=== PATIENT | male | born 1995 | race Caucasian/White ===

== ENCOUNTER 2017-05-18 17:44 | Emergency (ER) | payer BC, OTHER ==
[2017-05-18 17:52] VITALS: TEMP 99.1; O2SAT 96
--- NOTE | 2017-05-18 18:23 | EDPHY ---
H & P Time Seen by Provider: 05/18/17 17:46 HPI/ROS: HPI Right leg injury. 21-year-old male by private vehicle with his friends. This patient was playing Frisbee, he had another player fall awkwardly onto lateral posterior aspect of his right leg. He complains of pain and deformity to this area. No other injury or complaint. ROS: Constitutional: No fever, no chills. No weakness. Musculoskeletal: No back pain. No neck pain. As above. No other extremity pain. Skin: No rashes. No lacerations or abrasions. Neurological: No headache. No focal weakness or altered sensation. Past medical history: Denies. No prescription medications. Social history: Nonsmoker. Drinks alcohol socially. Here with his friends. Physical Exam: General Appearance: Alert, no distress. This patient is responding to questions appropriately and in full sentences. This patient appears well- hydrated and well-nourished. Eyes: Pupils equal and round no pallor or injection. No lid edema, erythema or injection. Head: Normocephalic atraumatic. Right leg and ankle exam: Significant for tenting deformity distal lateral leg. Skin is intact. The bony aspects of the foot are nontender and without deformity. No tenderness directly over the medial lateral malleolus. Muscle compartments of the right leg are soft. The right foot is neurovascularly intact. Neurological: Motor sensory function is grossly intact. Cranial nerves are normal. Gait is normal. Skin: Warm and dry, no rashes. Musculoskeletal: Neck is supple and nontender. Extremities are symmetrical. All joints range without pain or impingement. Psychiatric: No agitation. No depression. Database: EKG: Imaging: Right ankle/tib-fib x-ray series: Significant for a by positional transverse fracture of the distal tibia with lateral apex angulation of about 20 degrees and 1 cm of displacement of the middle segment over the distal segment. The ankle mortise appears intact. Bony aspects of the foot appear normal. Interpreted by me. Procedures: Procedure: Splint placement. A ortho glass posterior splint was applied. After application of the splint I returned and re-examined the patient. The splint was adequately immobilizing the joint and distal to the splint the patient's circulation and sensation was intact. Emergency department course: Patient is comfortable as is. He declines pain medication at this time. X- rays were taken. I consulted with Dr. Michael Morris of the Orthopedic [facility]. He reviewed the x-rays and evaluated the patient. Plan will be to place the patient in a posterior ortho glass splint, crutches and nonweightbearing, discharged to home and then follow up with Dr. Morris this week for operative management. This plan was reviewed with the patient and the patient's mother. They both endorse. The patient feels comfortable going home after above splinting. He has been instructed on usage of crutches. All of his questions were answered. Return to emergency department precautions reviewed. He was discharged in good condition. Differential Diagnosis: The differential diagnosis on this patient includes but is not limited to distal fibula fracture. Foot/tibial fracture/subluxation/dislocation unlikely. This represents a partial list of diagnoses considered. These considerations are based on history, physical exam, past history, reassessment and diagnostic testing. Smoking Status: Never smoked Constitutional: Initial Vital Signs Temperature (C) 37.3 C 05/18/17 17:49 Heart Rate 97 05/18/17 17:49 Respiratory Rate 16 05/18/17 17:49 Blood Pressure 161/98 H 05/18/17 17:49 O2 Sat (%) 96 05/18/17 17:49 O2 Delivery Mode Room Air Allergies/Adverse Reactions: No Known Allergies Allergy (Unverified 05/18/17 17:48) Home Medications: Medication Instructions Recorded Hydrocodone/APAP 5/325 [[place] 1 - 2 tab PO Q4-6PRN PRN #20 tab 05/18/17 5/325 (*)] Departure - Departure Disposition: Home, Routine, Self-Care Clinical Impression: Right fibular fracture Condition: Good Instructions: Leg Fracture (ED) Additional Instructions: Read and follow provided instructions. Follow-up with Orthopedics, Dr. Michael Morris, this week as discussed for further management. Ibuprofen dosin mg every 6 hours with meals for the next 3 days only. [place]/Percocet dosin-2 every 4-[address] for [address] Do not drive on this medication. Use crutches as instructed. Your to be nonweightbearing on your right leg until cleared by Dr. Morris. Return to the emergency department for worsening pain, swelling, discoloration, loss of sensation or discoloration in foot or other serious concerns. Referrals: Michael Morris MD [Medical Doctor] - As per Instructions Prescriptions: Hydrocodone/APAP 5/325 [[place] 5/325 (*)] 1 - 2 tab PO Q4-6PRN PRN #20 tab PRN Reason: Pain, Moderate
[2017-05-18] MEDS ORDERED: HYDROCOD/APAP 5/325 PREPACK#6 BTL TAKEHOME ONE (18:26)
[2017-05-18 18:49] VITALS: BP 146/97; PULSE 84; RESP 14
== END 2017-05-18 19:01 | disposition home or self-care (01) ==
DX: S82.421A Displaced transverse fracture of shaft of right fibula, initial encounter for closed fracture (principal); W03.XXXA Other fall on same level due to collision with another person, initial encounter; Y99.8 Other external cause status; Y93.74 Activity, frisbee